=== PATIENT | female | born 2000 | race African-American/Black ===

== ENCOUNTER 2022-03-26 14:49 | Emergency (ER) | payer OTHER ==
[~2022-03-26] VITALS: Ht 172.7 cm; Wt 70.0 kg
[2022-03-26] MEDS ORDERED: IBUPROFEN 600MG TABLET PO STA (16:40)
[2022-03-26] MEDS ORDERED: IBUP-2029 MT (17:35)
[2022-03-26 18:02] VITALS: BP 116/68
== END 2022-03-26 18:03 | disposition home or self-care (01) ==
LOC: ER 14:49
DX: R07.89 Other chest pain (principal)
CPT/HCPCS: 71045; 81025; 93005; 99283